=== PATIENT | female | born 1975 | race Caucasian/White ===

== ENCOUNTER → 2017-07-14 | Outpatient (CLI) | payer MEDICARE, MEDICAID ==
[2014-12-19 14:58] VITALS: BMI 30.7
[~2017-07-14] MED LIST: ACE3 PO; ACE500 PO; ACET-1718 PO; AMOX1TAB9 PO; BACDS PO; BACOUD TP; BENZ28CR14 TP; BUPR300T56 PO; CAL25 PO; CAL600 PO; CALC-630 PO; CALC-762 PO; CALC1TAB24 PO; CEFP200T18 PO; CHLO118L6 TP; CHOL100052 PO; CHOL100058 PO; CITA-128 PO; DIV500 PO; DIV500ER PO; DIVA250T83 PO; DOCU-202 PO; DOXY150T6 PO; EYEL1MED TP; FISH OIL1 CAP PO; GLUC-198 PO; GUAI-537 PO; HYDR-2966 PO; HYDR45CR TOP; HYPR15DR22 OP; IBUP400T13 PO; LAC3 PO; LEVO-3 PO; LOP2 PO; LOPE-84 PO; LORA10TA2 PO; MED150I IM; MENT118G TOP; METH500T6 PO; NA P OP; NAPR-723 PO; OMEG-11 PO; OMEP40CA48 PO; PER PO; PROC10TA95 PO; SODI30SP6 NS; TOBOO OU; TOLN10SO3 TP; [UNRECOGNIZED DRUG - CODE] MM; [UNRECOGNIZED DRUG - CODE] OP; [UNRECOGNIZED DRUG - CODE] TP; [UNRECOGNIZED DRUG - OTHER] TOP
--- NOTE | 2017-07-14 15:55 | RADIOLOGY IMAGING REPORT ---
[place] [facility] [place] THAI SPARKS : [id number] MR: [id number] V: [id number] EXAM DATE: ORDERING PHYSICIAN: AUDI KIRK TECHNOLOGIST: Jyoti Jewell PROCEDURE:BILATERAL DIGITAL SCREENING MAMMOGRAM WITH CAD ASSISTED INTERPRETATION COMPARISON:Prior mammograms 07/13/16, 06/12/15, 06/10/14. INDICATIONS:SCREENING FINDINGS: A small amount of fibroglandular tissue is seen throughout the breasts. Most of the parenchymal pattern has remained stable allowing for difference in mammographic technique & patient positioning. There is a new tightly clustered group of round calcifications in the medical inferior portion of the Left breast for which Spot magnification view is recommended. DIAGNOSTIC CATEGORY 0--INCOMPLETE: NEED ADDITIONAL IMAGING EVALUATION. RECOMMENDATIONS: ADDITIONAL MAMMOGRAPHIC VIEWS REQUIRED: LEFT BREAST. IMPRESSION: BIRADS 0: Incomplete Additional views of Left breast recommended. Dictated by: Alexandra Nascimento M.D. on 07/14/2017 at 10:43 Transcribed by: DOMENIC on 07/14/2017 at 10:56 Approved by: Alexandra Nascimento M.D. on 07/14/2017 at 15:54 [facility]
== END ==
LOC: MAMO 05:31
PROVIDERS: ATTEND Nurse Practitioner Family
DX: Z12.31 Encounter for screening mammogram for malignant neoplasm of breast (principal); R92.1 Mammographic calcification found on diagnostic imaging of breast
CPT/HCPCS: 77067

== ENCOUNTER → 2017-09-13 | Outpatient (CLI) | payer MEDICARE, MEDICAID ==
[2014-12-19 14:58] VITALS: BMI 30.7
[~2017-09-13] MED LIST changes: +CALC-634 PO; +IOPAMIDOL 76% 75 ML INFUS BTL 75 ML ONE; +PROC-5 PO; -PROC10TA95 PO
--- NOTE | 2017-09-13 09:25 | RADIOLOGY IMAGING REPORT ---
FACILITY: [facility] [place] PATIENT NAME: Ruth Causey : 1975 MR: [id number] V: [id number] EXAM DATE: ORDERING PHYSICIAN: AUDI KIRK TECHNOLOGIST: [place] [facility] [place]: Ruth Causey : 1975 Visit/Account:[id number] Date of Sevice: 09/13/2017 EXAMINATION: Abdominal ultrasound complete HISTORY: Epigastric pain COMPARISON: Gallbladder ultrasound September 25, 2013 FINDINGS: Gallbladder: No stones, wall thickening, pericholecystic fluid or sonographic Angulo sign. Liver: Negative. Common duct: Normal measuring 2.8 mm. Pancreas: Unremarkable as imaged Spleen: Normal in size and echogenicity measuring 7.4 cm in length. Kidneys: Normal in size and echogenicity, the right measures 9.5 cm in length, and the left nine cm. No hydronephrosis. Upper abdominal aorta and IVC: Negative. Ascites: None. IMPRESSION: Unremarkable abdomen ultrasound Report Dictated By: Alexandra Nascimento MD at 09/13/2017 9:16 AM Report E-Signed By: Alexandra Nascimento MD at 09/13/2017 9:21 AM WSN:[id number]
--- NOTE | 2017-09-13 10:53 | RADIOLOGY IMAGING REPORT ---
FACILITY: [facility] PATIENT NAME: Ruth Causey : 1975 MR: [id number] V: [id number] EXAM DATE: ORDERING PHYSICIAN: AUDI KIRK TECHNOLOGIST: Location: [facility] Patient: Ruth Causey : 1975 Visit/Account:[id number] Date of Sevice: 09/13/2017 EXAMINATION: Head CT with and without IV contrast ADDITIONAL HISTORY: Dizziness and falls. History of seizure activity COMPARISON STUDIES: none TECHNIQUE: Contiguous axial images were obtained through the head before and after IV contrast. One of the following dose optimization techniques was utilized in the performance of this exam: Automated exposure control; adjustment of the mA and/or kV according to the patient's size; or use of an itera tive reconstruction technique. Specific details can be referenced in the facility's radiology CT ex am operational policy. Contrast: 75 mL of IV Isovue-[id number] FINDINGS: Ventricles / sulci / fissures: negative Masses / hemorrhage / midline shift: negative White matter: negative Mccrary-white differentiation: negative Extra-axial spaces: negative Enhancement pattern: negative Dural venous sinuses / arterial structures: negative Skull base / calvarium: negative Visualized mastoid air cells / paranasal sinuses: negative IMPRESSION: Normal head CT with and without IV contrast. No evidence of mass, acute ischemia or hemorrhage. Report Dictated By: Jitendra Kiran MD at 09/13/2017 10:44 AM Report E-Signed By: Jitendra Kiran MD at 09/13/2017 10:47 AM WSN:[id number]
== END ==
LOC: CT 01:42
PROVIDERS: ATTEND Nurse Practitioner Family
DX: R10.13 Epigastric pain (principal); Z86.69 Personal history of other diseases of the nervous system and sense organs; D50.8 Other iron deficiency anemias; R53.83 Other fatigue; Z91.81 History of falling; E89.0 Postprocedural hypothyroidism; C73 Malignant neoplasm of thyroid gland; R19.31 Right upper quadrant abdominal rigidity
CPT/HCPCS: 70470; 76700; Q9967

== ENCOUNTER → 2017-09-19 | Outpatient (CLI) | payer MEDICARE, MEDICAID ==
[2014-12-19 14:58] VITALS: BMI 30.7
[~2017-09-19] MED LIST changes: -IOPAMIDOL 76% 75 ML INFUS BTL 75 ML ONE
--- NOTE | 2017-09-20 08:32 | RADIOLOGY IMAGING REPORT ---
FACILITY: [facility] [place] PATIENT NAME: THAI SPARKS : [id number] MR: [id number] V: [id number] EXAM DATE: [id number] ORDERING PHYSICIAN: AUDI KIRK TECHNOLOGIST: Deanna Triana PROCEDURE:LEFT DIGITAL DIAGNOSTIC MAMMOGRAM WITHOUT CAD OR 3D TOMOSYNTHESIS COMPARISON:Prior mammograms dated 07/14/17, 07/13/16, 06/12/15, 06/10/14 INDICATIONS:FURTHER EVAL FINDINGS: Patient returns for spot magnification views in the Left CC & Left mediolateral projections. The previously described new grouping of tightly clustered calcifications in the medial inferior Left breast middle third are redemonstrated. Given the inter appearance biopsy is recommended. Since the patient is not likely able to tolerate a stereotactic breast biopsy surgical excision coordinated with mammographically guided hookwire localization is recommended. DIAGNOSTIC CATEGORY 4--SUSPICIOUS FOR MALIGNANCY. RECOMMENDATIONS: SURGICAL BIOPSY COORDINATED WITH MAMMOGRAM HOOKWIRE LOCALIZATION: LEFT BREAST. IMPRESSION: BIRADS 4: Suspicious for malignancy. Surgical excision of the new tightly clustered calcifications in the medial inferior Left breast middle third recommended coordinated with mammographically guided hookwire localization. Dictated by: Alexandra Nascimento M.D. on 09/19/2017 at 17:53 Transcribed by: SHABNAM on 09/20/2017 at 6:57 Approved by: Alexandra Nascimento M.D. on 09/20/2017 at 8:31 [facility]
== END ==
LOC: MAMO 01:29
PROVIDERS: ATTEND Nurse Practitioner Family
DX: N63.24 Unspecified lump in the left breast, lower inner quadrant (principal)
CPT/HCPCS: 77061; 77065

== ENCOUNTER → 2018-01-08 | Outpatient (CLI) | payer MEDICARE, MEDICAID ==
[2014-12-19 14:58] VITALS: BMI 30.7
--- NOTE | 2018-01-08 16:52 | RADIOLOGY IMAGING REPORT ---
FACILITY: [facility] PATIENT NAME: Ruth Cuasey : 1975 MR: [id number] V: [id number] EXAM DATE: ORDERING PHYSICIAN: RENO ARECHIGA TECHNOLOGIST: Location: [facility] - [place] Patient: Ruth Causey : 1975 Visit/Account:[id number] Date of Sevice: 01/08/2018 Exam type: HAND 3 OR MORE VIEW BILATERAL History: Fall, pain and swelling and bruising Comparison: None Findings: The third fourth and fifth metacarpals appear foreshortened which appears to be congenital. There is however an irregularity with lucency along the lateral corner of the base of the right fourth metaca rpal which could represent an additional fracture. There is a comminuted impacted fracture through t he base of the proximal phalanx of the right fourth finger as well with adjacent soft tissue swelling . IMPRESSION: 1. 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
== END ==
LOC: RAD 15:40
PROVIDERS: ATTEND Nurse Practitioner Family
DX: S62.614A Displaced fracture of proximal phalanx of right ring finger, initial encounter for closed fracture (principal); Q68.1 Congenital deformity of finger(s) and hand

== ENCOUNTER → 2018-10-08 | Outpatient (CLI) | payer MEDICARE, MEDICAID ==
[2014-12-19 14:58] VITALS: BMI 30.7
--- NOTE | 2018-10-08 10:10 | RADIOLOGY IMAGING REPORT ---
FACILITY: [facility] PATIENT NAME: Ruth Causey : 1975 MR: [id number] V: [id number] EXAM DATE: ORDERING PHYSICIAN: AUDI KIRK TECHNOLOGIST: [facility] Patient: Ruth Causey : 1975 Visit/Account:[id number] Date of Sevice: 10/08/2018 DEXA Scan Clinical history: Osteopenia. Comparison: DEXA scan from 07/13/2016. LUMBAR SPINE: The bone mineral density (BMD) measured from L1-L4 correlates with a Z-score 0.4 and a T-score of 0. 8 which is Normal as defined by the World Health Organization. The corresponding risk of fracture in the lumbar spine is Not increased compared with a young adult reference population. This value has improved by 5.9 % since the prior study. More than 5% change is considered significant. HIP: Bone mineral density (BMD) measured in the Left total hip region correlates with a Z-score -1.9 and a T-score of -1.9 which is osteopenia as defined by the World Health Organization. The corresponding risk of fracture in the hip is increased nearly 4 times compared with a young adult reference populat ion. This value has improved by 9.9 % since the prior study. More than 5% change is considered signi ficant. Bone mineral density (BMD) measured in the Femoral Neck region measures 0.668 g/cm2. T score of -2.7. Osteoporosis. Fracture risk increased 7 times IMPRESSION: 1. Lumbar spine: Normal. There has been improvement by 5.9% in the bone mineral density since the p revious exam. 2. Left Total Hip: Osteopenia. There has been significant improvement by 9.9% in the bone mineral d ensity since the previous exam. 3. Femoral Neck: Bone Mineral Density is 0.668 g/cm2 . Osteoporosis. The next DEXA scan of this patient should include the following sites: L1-L4 and the left hip. FRAX? WHO Fracture Risk Assessment Tool link: <http://www.shef.ac.uk/FRAX/tool.jsp?locationValue=9> PLEASE NOTE: 1) The World Health Organization defines low BMD as follows: T-score Normal > -1 Osteopenia < -1 and > -2.5 Osteoporosis < -2.5 without fractures Established osteoporosis < -2.5 with fractures 2) In general, you may wish to consider: Diagnosis Treatment Follow-up DEXA Normal BMD Prevention 2-3 years Osteopenia Prevention/therapy 1-2 years Osteoporosis Therapy Yearly 3) Fracture risk estimated from the T-score is more accurate for vertebral fractures (often spontane ous) than for hip fractures. Report Dictated By: Justus Lomeli MD at 10/08/2018 9:57 AM Report E-Signed By: Justus Lomeli MD at 10/08/2018 10:03 AM WSN:[id number]
== END ==
LOC: RAD 00:48
PROVIDERS: ATTEND Nurse Practitioner Family
DX: M85.852 Other specified disorders of bone density and structure, left thigh (principal)
CPT/HCPCS: 77080